=== PATIENT | male | born 1960 | race Caucasian/White ===

== ENCOUNTER → 2018-05-26 | Outpatient (CLI) | payer OTHER ==
[2018-05-26] MEDS: GADOBUTROL 10 MMOL/10 ML VIAL INT ART (11:23)
[2018-05-26] MEDS: LIDOCAINE 1% Multi-Dose 20 ML VIAL. ID (11:23)
[2018-05-26] MEDS: IOHEXOL 300 MG/ML 50 ML VIAL. INT ART (11:23)
== END | disposition home or self-care (01) ==
LOC: KCIC 10:30
DX: Z01.00 Encounter for examination of eyes and vision without abnormal findings (principal); S43.491A Other sprain of right shoulder joint, initial encounter; M19.011 Primary osteoarthritis, right shoulder; X58.XXXA Exposure to other specified factors, initial encounter; Y93.89 Activity, other specified; Y92.89 Other specified places as the place of occurrence of the external cause; Y99.8 Other external cause status
CPT/HCPCS: 70030; 73040; 73222; A9585; Q9967